=== PATIENT | female | born 1980 | race Caucasian/White ===

== ENCOUNTER 2020-08-24 14:35 | Inpatient (IN) ==
[2020-08-24 16:08] LABS: Basophils % 0.5 % (0.0-0.8); Eosinophils # 0.2 10*3/uL (0.0-0.87); Eosinophils % 3.1 % (0.00-10.9); Hematocrit 41.3 VOL% (35.7-47.0); Hemoglobin 14.2 GM/DL (12.0-16.0); Immature Granulocytes % 0.4 %; Immature Granulocytes Absolute 0.03 #; Lymphocytes # 1.9 10*3/uL (1.4-4.0); Lymphocytes % 24.7 % (21.3-54.2); Mean Corpuscular HGB Conc 34.4 GM/DL (32-36); Mean Corpuscular Volume 93.4 FL (87-102); Mean Platelet Volume 9.2 FL (9.6-12.0); Monocytes % 8.3 % (1.7-12.7); Platelet Count 333 T/CUMM (130-400); Red Blood Count 4.42 MC/CUMM (3.8-5.5); White Blood Count 7.7 T/CUMM (4-12)
[2020-08-24] MEDS ORDERED: methylPREDNISolone SOD SUC INJ 1,000 MG in SODIUM CHLORIDE 0.9% 100 ML IV STA (16:18)
[2020-08-24 16:31] LABS: Calcium 8.3 MG/DL (8.5-10.1)
[2020-08-24 16:32] LABS: Osmolality,Calculated 279.4 MOS/KG (273-304); Potassium 3.3 MMOL/L (3.5-5.1)
[2020-08-24] MEDS ORDERED: methylPREDNISolone SOD SUC 125 MG/2 ML VIAL ONE (17:15)
[2020-08-24 17:21] LABS: Sedimentation Rate-Westergren 3 MM/HR (0-20)
[2020-08-24] MEDS ORDERED: POTASSIUM CHLORIDE 20 MEQ TABLET PO ONE (17:27)
[2020-08-24] MEDS ORDERED: LACTATED RINGERS 1,000 ML IV SCH (17:30)
[2020-08-24] MEDS ORDERED: GLUCAGON 1 MG VIAL IM PRN (17:31)
[2020-08-24] MEDS ORDERED: DEXTROSE 50% 25 GM/50 ML VIAL IV PRN (17:31)
[2020-08-24 18:12] LABS: Risk Ratio 6.06; Thyroid Stimulating Hormone 0.932 uIU/ml (0.358-3.74); VLDL Cholesterol 82.6 MG/DL
[2020-08-24] MEDS: ACETAMINOPHEN 500 MG TABLET PO PRN (18:38)
[2020-08-24] MEDS: KETOROLAC 30 MG/1 ML VIAL IV PRN (21:31)
[2020-08-25 04:52] LABS: Basophils % 0.2 % (0.0-0.8); Hematocrit 45.5 VOL% (35.7-47.0); Hemoglobin 15.5 GM/DL (12.0-16.0); Immature Granulocytes % 0.5 %; Immature Granulocytes Absolute 0.03 #; Lymphocytes # 0.9 10*3/uL (1.4-4.0); Lymphocytes % 13.7 % (21.3-54.2); Mean Corpuscular HGB Conc 34.1 GM/DL (32-36); Mean Corpuscular Volume 94.8 FL (87-102); Mean Platelet Volume 9.3 FL (9.6-12.0); Monocytes % 1.1 % (1.7-12.7); Neutrophils % 84.5 % (38.7-73.9); Platelet Count 333 T/CUMM (130-400); Red Cell Distribution Width 11.8 % (9.3-17.3); White Blood Count 6.6 T/CUMM (4-12)
[2020-08-25 05:29] LABS: Albumin 3.9 G/DL (3.4-5.0); Bilirubin,Total 0.5 MG/DL (0.2-1.0); Calcium 8.9 MG/DL (8.5-10.1); Osmolality,Calculated 276.8 MOS/KG (273-304); Potassium 4.6 MMOL/L (3.5-5.1); Total Protein 7.6 G/DL (6.4-8.2)
[2020-08-25] MEDS: methylPREDNISolone SOD SUC 125 MG/2 ML VIAL IV SCH ×2 (06:09→13:12)
[2020-08-25] MEDS: KETOROLAC 30 MG/1 ML VIAL IV PRN (09:23)
[2020-08-25] MEDS: ENOXAPARIN 40 MG/0.4 ML SYRINGE SUBCUT SCH (10:52)
[2020-08-25] MEDS: ASPIRIN CHEW 81 MG TABLET PO SCH (10:52)
[2020-08-25] MEDS: FLUoxetine 20 MG CAPSULE PO SCH (14:15)
[2020-08-25] MEDS ORDERED: methylPREDNISolone SOD SUC INJ 500 MG in SODIUM CHLORIDE 0.9% 100 ML IV SCH (16:00)
[2020-08-25 16:17] LABS: Basophils % 0.1 % (0.0-0.8); Hematocrit 40.7 VOL% (35.7-47.0); Hemoglobin 14.3 GM/DL (12.0-16.0); Immature Granulocytes % 0.8 %; Immature Granulocytes Absolute 0.11 #; Lymphocytes # 0.8 10*3/uL (1.4-4.0); Lymphocytes % 5.3 % (21.3-54.2); Mean Corpuscular HGB Conc 35.1 GM/DL (32-36); Mean Corpuscular Volume 93.6 FL (87-102); Mean Platelet Volume 9.8 FL (9.6-12.0); Neutrophils % 92.8 % (38.7-73.9); Platelet Count 345 T/CUMM (130-400); Red Blood Count 4.35 MC/CUMM (3.8-5.5); Red Cell Distribution Width 11.9 % (9.3-17.3); White Blood Count 14.3 T/CUMM (4-12)
[2020-08-25 16:43] LABS: Albumin 3.8 G/DL (3.4-5.0); Bilirubin,Total 0.6 MG/DL (0.2-1.0); Calcium 8.8 MG/DL (8.5-10.1); Osmolality,Calculated 284.7 MOS/KG (273-304); Potassium 3.8 MMOL/L (3.5-5.1)
[2020-08-25 16:45] LABS: Band Neutrophils 4 % (0-10); Lymphocytes 9 % (20-55); Platelet Estimate Adequate; Segmented Neutrophils 86 % (50-85); Total Cells Counted 100
[2020-08-25] MEDS: PROMETHAZINE 25 MG/1 ML VIAL IM SCH (17:35)
[2020-08-25] MEDS: MEPERIDINE 25 MG/1 ML VIAL IV SCH (17:35)
[2020-08-25] MEDS: VALPROIC ACID INJ 500 MG in SODIUM CHLORIDE 0.9% 100 ML IV SCH (20:22)
[2020-08-25] MEDS: ATORVASTATIN 40 MG TABLET PO SCH (20:24)
[2020-08-25] MEDS: methylPREDNISolone SOD SUC INJ 500 MG in SODIUM CHLORIDE 0.9% 100 ML IV SCH (21:53)
[2020-08-26] MEDS: MEPERIDINE 25 MG/1 ML VIAL IV SCH ×3 (01:26→17:16)
[2020-08-26] MEDS: PROMETHAZINE 25 MG/1 ML VIAL IM SCH ×3 (02:09→16:32)
[2020-08-26] MEDS: VALPROIC ACID INJ 500 MG in SODIUM CHLORIDE 0.9% 100 ML IV SCH ×2 (05:12→13:05)
[2020-08-26] MEDS: ASPIRIN CHEW 81 MG TABLET PO SCH (09:35)
[2020-08-26] MEDS: FLUoxetine 20 MG CAPSULE PO SCH ×2 (09:36→10:24)
[2020-08-26] MEDS: methylPREDNISolone SOD SUC INJ 500 MG in SODIUM CHLORIDE 0.9% 100 ML IV SCH ×2 (10:24→21:16)
[2020-08-26 11:26] LABS: INR 1.1; PT Patient Result 11.9 SECS (10.5-12.0)
[2020-08-26] MEDS ORDERED: FLUoxetine 20 MG CAPSULE PO SCH (13:00)
[2020-08-26 15:42] LABS: Appearance,CSF Clear; Red Blood Cell,CSF < 1 C/CUMM; White Blood Cell,CSF 5 C/CUMM
[2020-08-26 15:52] LABS: Glucose,CSF 118 MG/DL (40-70)
[2020-08-26] MEDS ORDERED: ALUMINUM/MAGNES/SIMETH MAX STR 30 ML UDCUP PO PRN (16:39)
[2020-08-26] MEDS: PANTOPRAZOLE 40 MG TABLET PO SCH (17:15)
[2020-08-26 17:33] LABS: Lymphocytes,CSF 100 %
[2020-08-26] MEDS: ATORVASTATIN 40 MG TABLET PO SCH (21:16)
[2020-08-27 05:46] LABS: Basophils % 0.1 % (0.0-0.8); Hemoglobin 13.2 GM/DL (12.0-16.0); Immature Granulocytes Absolute 0.13 #; Lymphocytes % 7.6 % (21.3-54.2); Mean Corpuscular Volume 95.5 FL (87-102); Mean Platelet Volume 9.9 FL (9.6-12.0); Neutrophils % 88.3 % (38.7-73.9); Platelet Count 355 T/CUMM (130-400); Red Blood Count 4.19 MC/CUMM (3.8-5.5); Red Cell Distribution Width 12.3 % (9.3-17.3); White Blood Count 13.2 T/CUMM (4-12)
[2020-08-27 06:26] LABS: Calcium 8.1 MG/DL (8.5-10.1); Osmolality,Calculated 283.1 MOS/KG (273-304); Potassium 3.7 MMOL/L (3.5-5.1)
[2020-08-27] MEDS: ONDANSETRON 4 MG/2 ML VIAL IV PRN ×2 (07:11→19:10)
[2020-08-27] MEDS: PANTOPRAZOLE 40 MG TABLET PO SCH (08:51)
[2020-08-27] MEDS: methylPREDNISolone SOD SUC INJ 500 MG in SODIUM CHLORIDE 0.9% 100 ML IV SCH ×2 (08:52→20:37)
[2020-08-27] MEDS: FLUoxetine 20 MG CAPSULE PO SCH (08:52)
[2020-08-27] MEDS: ACETAMINOPHEN 500 MG TABLET PO PRN (09:24)
[2020-08-27] MEDS: MEPERIDINE 25 MG/1 ML VIAL IV PRN ×2 (09:48→19:10)
[2020-08-27 13:00] LABS: VDRL Spinal Fluid Negative (Negative)
[2020-08-27] MEDS: ATORVASTATIN 40 MG TABLET PO SCH (20:37)
[2020-08-28] MEDS: MEPERIDINE 25 MG/1 ML VIAL IV PRN ×3 (03:50→21:19)
[2020-08-28] MEDS ORDERED: ASPIRIN CHEW 81 MG TABLET PO ONE (08:12)
[2020-08-28] MEDS: FLUoxetine 20 MG CAPSULE PO SCH (08:57)
[2020-08-28] MEDS: ASPIRIN CHEW 81 MG TABLET PO SCH (08:57)
[2020-08-28] MEDS: PANTOPRAZOLE 40 MG TABLET PO SCH (08:58)
[2020-08-28] MEDS: methylPREDNISolone SOD SUC INJ 500 MG in SODIUM CHLORIDE 0.9% 100 ML IV SCH ×2 (08:58→21:20)
[2020-08-28] MEDS: traMADol 50 MG TABLET PO PRN ×2 (10:43→18:30)
[2020-08-28] MEDS: KETOROLAC 15 MG/1 ML VIAL IV PRN (11:52)
[2020-08-28] MEDS: ATORVASTATIN 40 MG TABLET PO SCH (21:19)
[2020-08-28] MEDS: ONDANSETRON 4 MG/2 ML VIAL IV PRN (21:24)
[2020-08-29 04:57] LABS: Calcium 8.4 MG/DL (8.5-10.1); Osmolality,Calculated 283.3 MOS/KG (273-304); Potassium 3.9 MMOL/L (3.5-5.1)
[2020-08-29] MEDS: MEPERIDINE 25 MG/1 ML VIAL IV PRN (07:11)
[2020-08-29] MEDS: KETOROLAC 15 MG/1 ML VIAL IV PRN ×2 (07:12→15:33)
[2020-08-29] MEDS ORDERED: PROMETHAZINE 25 MG/1 ML VIAL IM PRN (07:13)
[2020-08-29] MEDS: PANTOPRAZOLE 40 MG TABLET PO SCH (09:14)
[2020-08-29] MEDS: methylPREDNISolone SOD SUC INJ 500 MG in SODIUM CHLORIDE 0.9% 100 ML IV SCH ×2 (09:14→20:11)
[2020-08-29] MEDS: ASPIRIN CHEW 81 MG TABLET PO SCH (09:14)
[2020-08-29] MEDS: FLUoxetine 20 MG CAPSULE PO SCH (09:17)
[2020-08-29] MEDS: ENOXAPARIN 40 MG/0.4 ML SYRINGE SUBCUT SCH (10:25)
[2020-08-29] MEDS ORDERED: CYCLOBENZAPRINE 10 MG TABLET PO PRN (10:35)
[2020-08-29] MEDS: LIDOCAINE 5% PATCH TRANSDERM SCH (11:32)
[2020-08-29] MEDS: ONDANSETRON 4 MG/2 ML VIAL IV PRN (19:09)
[2020-08-29] MEDS: ATORVASTATIN 40 MG TABLET PO SCH (20:11)
[2020-08-30 05:22] LABS: Basophils % 0.3 % (0.0-0.8); Hematocrit 43.6 VOL% (35.7-47.0); Immature Granulocytes % 5.7 %; Immature Granulocytes Absolute 0.67 #; Lymphocytes # 1.1 10*3/uL (1.4-4.0); Lymphocytes % 9.7 % (21.3-54.2); Mean Corpuscular HGB Conc 34.4 GM/DL (32-36); Mean Corpuscular Volume 92.4 FL (87-102); Mean Platelet Volume 9.4 FL (9.6-12.0); Monocytes % 5.6 % (1.7-12.7); Neutrophils % 78.7 % (38.7-73.9); Platelet Count 351 T/CUMM (130-400); Red Blood Count 4.72 MC/CUMM (3.8-5.5); Red Cell Distribution Width 11.6 % (9.3-17.3); White Blood Count 11.7 T/CUMM (4-12)
[2020-08-30 05:42] LABS: Osmolality,Calculated 283.3 MOS/KG (273-304); Potassium 3.6 MMOL/L (3.5-5.1)
[2020-08-30 05:52] LABS: Anisocytosis 1+; Lymphocytes 12 % (20-55); Nucleated Red Blood Cells 1 (0-5); Platelet Estimate Normal; Segmented Neutrophils 80 % (50-85); Total Cells Counted 100
[2020-08-30 05:54] LABS: Macrocytosis Slight
[2020-08-30] MEDS ORDERED: methylPREDNISolone SOD SUC INJ 500 MG in SODIUM CHLORIDE 0.9% 100 ML IV SCH (09:00)
[2020-08-30] MEDS: LIDOCAINE 5% PATCH TRANSDERM SCH (10:04)
[2020-08-30] MEDS: ASPIRIN CHEW 81 MG TABLET PO SCH (10:05)
[2020-08-30] MEDS: PANTOPRAZOLE 40 MG TABLET PO SCH (10:05)
[2020-08-30] MEDS: FLUoxetine 20 MG CAPSULE PO SCH (10:05)
[2020-08-30] MEDS: ENOXAPARIN 40 MG/0.4 ML SYRINGE SUBCUT SCH (10:05)
[2020-08-30 11:39] VITALS: BP 128/83
[2020-09-01 09:47] LABS: Albumin, Serum 4300 mg/dL; IgG, CSF 3.5 mg/dL (<=8.1); IgG, Serum 884 mg/dL (767 - 1590); IgG/Albumin Ratio, CSF 0.21 (<=0.21); Synthesis Rate, CSF 8.36 mg/24 h (<=12)
[2020-09-01 11:51] LABS: West Nile Virus Ab, IgG, CSF Negative (Negative); West Nile Virus Ab, IgM, CSF Negative (Negative)
== END 2020-08-30 12:15 | disposition home or self-care (01) | DRG 59 ==
LOC: N.ED 14:35 → N.EDINP 14:35 → SUATTDRO 17:05 → N.3E 17:49 → SUATTDRO 08-25 18:23
PROVIDERS: ADMIT Internal Medicine; ATTEND Internal Medicine